=== PATIENT | male | born 1955 | race Native Hawaiian/Other Pacific Islander ===

== ENCOUNTER 2017-04-04 08:35 | Outpatient (CLI) | payer BC | END 2017-04-04 18:55 | disposition home or self-care (01) | LOC: MRI 08:35 | DX: M06.1 Adult-onset Still's disease (principal); Z79.899 Other long term (current) drug therapy; M75.41 Impingement syndrome of right shoulder ==

== ENCOUNTER 2020-05-14 09:34 | Outpatient (CLI) | payer OTHER, BC | END 2020-05-14 19:00 | disposition home or self-care (01) | LOC: RAD 09:34 | PROVIDERS: ATTEND Nurse Practitioner Family | DX: L03.115 Cellulitis of right lower limb (principal) ==